=== PATIENT | female | born 1985 | race Caucasian/White ===

== ENCOUNTER 2018-03-20 13:26 | Emergency (ER) | payer OTHER, SELFPAY ==
[2018-03-20 13:32] VITALS: BP 128/87; PULSE 113; RESP 18; TEMP 36.4; O2SAT 100; BMI 25.3
--- NOTE | 2018-03-20 13:53 | DI.US.S_ITS ---
PROCEDURE: US OB <= 14 WEEKS FETUS INDICATIONS: spotting, 12 weeks 2 days. H/o IUP via ultrasound OUTSIDE/PRIOR DATING DATA: Last menstrual period (LMP): 12/24/17. LMP-based estimated date of delivery (TRACEY): 09/30/18. First dating scan (date and location): This study, 03/20/18. TECHNIQUE: Real-time scanning was performed of the fetus and maternal pelvic organs, with image documentation. Endovaginal scanning was also performed to better visualize the fetus and maternal ovaries. COMPARISON: None. FINDINGS: Embryo: A crown-rump length measured at 2.1 cm which correlates with a gestational age of 8 weeks 5 days. cardiac activity was not observed Measurement variability in dating: +/- 4 weeks by LMP, +/- 7 days by mean sac diameter (use before 6 weeks gestation if crown-rump length not able to be measured), +/- 5 days by crown-rump length (up to 8 weeks 6 days gestation), +/- 7 days by crown-rump length (up to 13 weeks 6 days gestation). Maternal organs: Ovaries normal considering gestational status. Limited images through the kidneys demonstrate no hydronephrosis. IMPRESSION: 8 week 5 day gestational age by crown-rump length and then intrauterine gestation however cardiac activity was not observed and demise is documented. Dictated by: Benson Hernandez M.D. on 03/20/2018 at 15:06 Approved by: Benson Hernandez M.D. on 03/20/2018 at 15:09
[2018-03-20 14:09] LABS: Hematocrit 42.1 % (36-46); Hemoglobin 14.6 g/dL (12.0-16.0); Mean Corpuscular HGB Conc 34.6 % (30-36); Mean Corpuscular Hemoglobin 30.7 PG (26-34); Mean Corpuscular Volume 88.6 fL (80-100); Platelet Count 442 X10^3/uL (150-400); Red Blood Cell Count 4.75 X10^6/uL (4.0-5.2); Red Cell Distribution Width 12.5 % (11.6-14.8)
[2018-03-20 14:33] LABS: HCG Quantitative /Beta subunit 3560.2 mIU/mL
[2018-03-20 14:43] LABS: Neutrophils Absolute Manual 6000 /uL (3000-5900); RBC Morphology Normal Morphology; Total Cells Counted 100
[2018-03-20 15:46] VITALS: BP 129/82; PULSE 101; RESP 18; O2SAT 100
--- NOTE | 2018-03-20 15:56 | ED_ITS ---
HPI - General Chief complaint: Vaginal Bleeding Stated complaint: MISCARRIAGE Time Seen by Provider: 03/20/18 15:45 Source: patient Mode of arrival: ambulatory Limitations: no limitations History of Present Illness HPI Narrative: Patient is a 32-year-old female who presents with vaginal bleeding. She is currently 12 weeks . She started having some spotting 2 days ago. Last evening it progressively got worse with increased cramping. She has taken Tylenol today without any relief. She is . No fever no chills. She does feel nauseated no vomiting. Complaint: vaginal bleeding Related Data Home Medications Medication Instructions Recorded Confirmed aspirin 81 mg PO DAILY 03/20/18 03/20/18 oxybutynin chloride 5 mg PO BEDTIME 03/20/18 03/20/18 Allergies Allergy/AdvReac Type Severity Reaction Status Date / Time Penicillins Allergy Severe Hives Verified 03/20/18 13:37 Review of Systems Review of Systems All systems reviewed & are unremarkable except as noted in HPI and below Constitutional Denies chills, Denies fever(s), Denies lethargy and Denies weakness Cardiovascular Denies chest pain, Denies irregular heart rhythm, Denies lightheadedness, Denies palpitations, Denies dyspnea, Denies dyspnea on exertion and Denies orthopnea Respiratory Denies cough, Denies dyspnea, Denies dyspnea on exertion and Denies wheezing Genitourinary Reports system reviewed and no additional complaints, except as docu Musculoskeletal Denies back pain, Denies muscle weakness, Denies numbness and Denies tingling Integumentary/Breasts Denies pruritus, Denies erythema, Denies rash and Denies wounds Neurologic Denies numbness, Denies tingling and Denies weakness Endocrine Denies palpitations Allergic/Immunologic Denies wheezing PMFSH - Past Medical History Medical history: Reports no medical history Exam Initial Vital Signs Initial Vital Signs: Vital Signs Temperature 97.5 F L 03/20/18 13:32 Pulse Rate 113 H 03/20/18 13:32 Respiratory Rate 18 03/20/18 13:32 Blood Pressure 128/87 H 03/20/18 13:32 Pulse Oximetry 100 03/20/18 13:32 GENERAL: Well-appearing, well-nourished and in no acute distress. HEENT: Head atraumatic,EOMI, pupils reactive CARDIOVASCULAR: Regular rate and rhythm without murmurs, rubs or gallops. RESPIRATORY: Breath sounds equal bilaterally, no wheezes rales or rhonchi. ABDOMEN: Soft, nontender. Normoactive bowel sounds all 4 quadrants. No guarding or rebound. : No CVA tenderness EXTREMITIES: Normal range of motion, no clubbing or edema. Neurovascularly intact NEUROLOGICAL: Alert and oriented x4.Normal gait and speech. Cranial nerves II through XII grossly intact. SKIN: Warm, dry, no laceration, no petechiae, no rashes or lesions. Course Orders Ordered: ED Orders 03/20/18 13:50 Complete Blood Count MAN DIFF Stat HCG Quantitative Stat 03/20/18 13:53 US OB <= 14 weeks fetus Stat Discontinued Medications Ketorolac Tromethamine (Toradol) 30 mg IV NOW ONE Stop: 03/20/18 16:11 Last Admin: 03/20/18 16:17 Dose: 30 mg Metoclopramide HCl (Reglan) 5 mg IV NOW ONE Stop: 03/20/18 16:29 Last Admin: 03/20/18 16:35 Dose: 5 mg Morphine Sulfate (Morphine) 2 mg IV NOW ONE Stop: 03/20/18 16:29 Last Admin: 03/20/18 16:38 Dose: 2 mg Ondansetron HCl (Zofran) 4 mg IV NOW ONE Stop: 03/20/18 16:11 Last Admin: 03/20/18 16:17 Dose: 4 mg Vital Signs - 8 hr 03/20/18 13:32 03/20/18 15:46 Temperature 97.5 F L Pulse Rate 113 H 101 H Respiratory Rate 18 18 Blood Pressure 128/87 H Blood Pressure [Left Arm] 129/82 H Pulse Oximetry 100 100 MDM - OB/Uterine Contractions Lab Data Attestation: I reviewed the patient's lab results. Result diagrams: 03/20/18 13:50 Lab Results 03/20/18 03/20/18 Range/Units 13:50 13:50 WBC 10.0 (4.5-11.0) X10^3/uL RBC 4.75 (4.0-5.2) X10^6/uL Hgb 14.6 (12.0-16.0) g/dL Hct 42.1 (36-46) % MCV 88.6 (80-100) fL MCH 30.7 (26-34) PG MCHC 34.6 (30-36) % RDW 12.5 (11.6-14.8) % Plt Count 442 H (150-400) X10^3/uL Total Counted 100 Seg Neutrophils % 60.0 (38-70) % Lymphocytes % (Manual) 36.0 (25-45) % Monocytes % (Manual) 2.0 (2-11) % Eosinophils % (Manual) 2.0 (2-4) % Neutrophils # (Manual) 6000 H (1952-3705) /uL RBC Morphology Normal morphology HCG, Quant 3560.2 mIU/mL Imaging Data OB ultrasound: Radiologist's impression: PROCEDURE: US OB <= 14 WEEKS FETUS INDICATIONS: spotting, 12 weeks 2 days. H/o IUP via ultrasound OUTSIDE/PRIOR DATING DATA: Last menstrual period (LMP): 12/24/17. LMP-based estimated date of delivery (TRACEY): 09/30/18. First dating scan (date and location): This study, 03/20/18. TECHNIQUE: Real-time scanning was performed of the fetus and maternal pelvic organs, with image documentation. Endovaginal scanning was also performed to better visualize the fetus and maternal ovaries. COMPARISON: None. FINDINGS: Embryo: A crown-rump length measured at 2.1 cm which correlates with a gestational age of 8 weeks 5 days. cardiac activity was not observed Measurement variability in dating: +/- 4 weeks by LMP, +/- 7 days by mean sac diameter (use before 6 weeks gestation if crown-rump length not able to be measured), +/ - 5 days by crown-rump length (up to 8 weeks 6 days gestation), +/- 7 days by crown-rump length (up to 13 weeks 6 days gestation). Maternal organs: Ovaries normal considering gestational status. Limited images through the kidneys demonstrate no hydronephrosis. IMPRESSION: 8 week 5 day gestational age by crown-rump length and then intrauterine gestation however cardiac activity was not observed and demise is documented. Dictated by: Benson Hernandez M.D. on 03/20/2018 at 15:06 MDM Narrative Medical decision making narrative: Patient states that she is B positive. 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 Ultrasound confirms demise. I have called and spoken with patient's OBGYN- the clinic. She has an appointment for TuesdayNovember 20 at 4:00 p.m. her. She is aware of warning signs and worsening symptoms. Discharge Plan Departure Patient Disposition: Home Clinical Impression: Missed Discharge Date/Time: 03/20/18 17:07 Interventions: ED Discharge Assessment Last Done: 03/20/18 17:07 Instructions: Dealing With Miscarriage, DI for Miscarriage Activity Restrictions/Additional Instructions: *You have been diagnosed with miscarriage *What to do: Called OB office to give information *Continue to take medications as directed *Follow up with OB Tuesday03/22/2018 appointment is at 4:00 p.m., arrive at 3: 30 p.m. for paperwork *Return to ER if you should have increased bleeding, pain, lightheadedness, dizziness or any new, worsening or concerning symptoms Prescriptions: No Action aspirin 81 mg Tablet,Chewable 81 mg PO DAILY RF: 0 oxybutynin chloride 5 mg Tablet 5 mg PO BEDTIME RF: 0
[2018-03-20] MEDS: KETOROLAC 60 MG/2 ML VIAL 30 MG IV (16:17)
[2018-03-20] MEDS: ONDANSETRON 4 MG/2 ML INJ IV (16:17)
[2018-03-20] MEDS: METOCLOPRAMIDE 10 MG/2 ML INJ 5 MG IV (16:35)
[2018-03-20] MEDS: MORPHINE 2 MG/ML INJ IV (16:38)
== END 2018-03-20 17:07 | disposition home or self-care (01) ==
PROVIDERS: Emergency Provider Emergency Medicine
DX: O02.1 Missed abortion (principal)
CPT/HCPCS: 36591; 76801; 81003; 84702; 85025; 96374; 96375; 99282; 99284; J1885; J2270; J2405; J2765